=== PATIENT | female | born 1985 | race Caucasian/White ===

== ENCOUNTER 2018-01-21 19:13 | Observation (INO) | payer OTHER ==
[2018-01-21] MEDS ORDERED: ONDANSETRON 4 MG/2 ML VIAL ONE (19:29)
[2018-01-21] MEDS ORDERED: NS 1,000 ML IV ONE ×2 (19:30→21:57)
--- NOTE | 2018-01-21 19:31 | EDPHY ---
HPI/HX/ROS/PE/MDM Narrative: CHIEF COMPLAINT: HPI: This patient is a 33 year old female who is 20 weeks complaining of upper left abdominal pain. She is visiting from [place] for a baby shower. Around 15:00 this afternoon, she developed a shooting cramping pain wrapping around her lower ribs on her left side. She was on her way to the airport to fly home, but vomited four times since the onset of pain and decided to stay here in [place] for evaluation. She believes her episodes of emesis may be related to severe pain. Additionally, the patient notes she has had some urinary urgency today. Two weeks ago, she had similar pain lasting 30-40 minutes. She sought care at that time and had blood-work and UA which she reports were unremarkable. She has otherwise had a normal, easy and is receiving pre-tal care. Her last US was in November, and she is due for her 20 week ultrasound on Monday in [place]. She denies history of blood clots or kidney stones. No fever, diarrhea, chest pain, shortness of breath, or other associated symptoms. REVIEW OF SYSTEMS: Aside from elements discussed in the HPI, a comprehensive 10-point review of systems was reviewed and is negative. PMH: Denies. SOCIAL HISTORY: Employed. Parents at bedside. PHYSICAL EXAM: General:Patient is alert, in no acute distress. ENT:Eyes are normal to inspection. ENT inspection normal. Neck: Normal inspection. Full range of motion. Respiratory:No respiratory distress. Breath sounds normal bilaterally. Cardiovascular: Regular rate and rhythm. Strong peripheral pulses. Normal cap refill. Abdomen:The abdomen is nontender to palpation. There are no peritoneal signs. There are normal bowel sounds. Back: Tenderness to left flank. Normal to inspection. Skin: Normal color. No rash. Warm and dry. Extremities: Normal appearance. Full range of motion. Neuro: Oriented x3. Normal motor function. Normal sensory function. (Hans Garza) ED Course: 33 y/o female who is 20 weeks presents with left-sided upper abdominal pain. Exam reveals left flank tenderness. Patient declines antiemetic medications at this time. Plan for labs including CBC, chemistries, UA. Plan for US retroperitoneal abdomen as well as obstetric US. Plan to administer 1L IV NS for rehydration. Laboratory studies reviewed. WBC elevated at 17,000. UA positive for 3+ glucose and 2+ ketones. (Hans Garza) I took over care of this patient at 8:00 p.m.. This patient presents 20 weeks with left sided flank pain and several episodes of vomiting. Blood work significant for leukocytosis as well as a urinalysis positive for 3+ glucose and 2+ ketones. Retroperitoneal ultrasound as well as obstetrical ultrasound pending. 8:55 p.m., patient re-evaluated. She complains that her pain is coming back. She describes the pain at the mid to anterior axillary line below the costal margin on the left side. She describes it as sharp and cramping. I reviewed the results of her emergency department workup with her and her parents. OBGYN paged. 9:00 p.m., spoke with on-call OBGYN Dr. Kathy Driscoll, case discussed in detail with her. Vital signs, presentation, blood work, urinalysis and imaging all reviewed. I discussed the possibility of a pulmonary embolism being a source of her pain. Although, I feel her pain is below her costal margin far enough to make pulmonary embolism less likely. Dr. Driscoll feels as well that pulmonary embolism should be considered. Dr. Driscoll will see this patient in the emergency department on consultation shortly. I will obtain bilateral lower extremity ultrasounds. Dr. Driscoll also asked that we image the gallbladder and pancreas. This will be done and LFTs and lipase will be obtained as well. This plan was discussed with the patient and her family. Retroperitoneal and obstetrical ultrasound discussed with Dr. Vlad Ellison. No significant findings. Please see is above-noted reports for further details. 10:10 p.m., abdominal ultrasound and bilateral lower extremity Doppler ultrasounds discussed with staff radiologist Dr. Vlad Ellison. No significant findings. Please see his above-noted reports for further details. 10:15 p.m., spoke with Dr. Kathy Driscoll. She has evaluated the patient. Results of above ultrasounds discussed with Dr. Driscoll. She would like to admit the patient to her service for observation, IV hydration and IV pain medications overnight. She is concerned that this may be a pyelonephritis even though we are not seen evidence of infection in the patient's urine. She asked that we give the patient IV Rocephin in the emergency department as well as some IV hydromorphone for pain. This was done. Plan for admission to Dr. Driscoll reviewed with the patient and her family. All of their questions were answered. The patient was admitted in stable condition to labor and delivery under the care of Dr. Driscoll. (Alfie Myles) - Data Points Imaging Results: Imaging Impressions Abdomen/Pelvis Ultrasound 01/21/18 19:30 Impression: Small fluid-filled calyx in the upper pole of the right kidney, and very mild left sided pelvocaliectasis. There is no obstructing stone, perinephric fluid, or focal renal mass identified. The results were discussed with the patient and her parents, and also subsequently conveyed to Dr. Alfie Myles on Monday evening 01/21/2018. Obstetrics Ultrasound 01/21/18 19:31 Impression: There is a single viable intrauterine gestation with a normal amniotic fluid volume and a normal appearance of the placenta. Findings were discussed with Alfie Myles MD at 21:22, on 01/21/2018. Abdomen Ultrasound 01/21/18 21:06 Impression: 1. Normal sonographic appearance of the gallbladder, liver, and pancreas. 2. Small unchanged fluid-filled calyx in the upper pole of the right kidney, with no perinephric fluid. Findings were discussed with Alfie Myles MD at 22:15, on 01/21/2018. Extremity Venous Study 01/21/18 21:22 Impression: There is no sonographic evidence of deep or superficial venous thrombosis in either lower extremity. Findings were discussed with Harjeet, the ED technologist, who will convey the information to Alfie Myles MD at 22:09, on 01/21/2018. Laboratory Results: Laboratory Results 01/21/18 19:25 01/21/18 19:25 01/21/18 01/21/18 01/21/18 19:25 19:25 19:25 WBC 17.28 10^3/uL H 10^3/uL (3.80-9.50) RBC 4.15 10^6/uL L 10^6/uL (4.18-5.33) Hgb 13.4 g/dL g/dL (12.6-16.3) Hct 38.2 % % (38.0-47.0) MCV 92.0 fL fL (81.5-99.8) MCH 32.3 pg pg (27.9-34.1) MCHC 35.1 g/dL g/dL (32.4-36.7) RDW 13.3 % % (11.5-15.2) Plt Count 285 10^3/uL 10^3/uL (150-400) MPV 9.7 fL fL (8.7-11.7) Neut % (Auto) 90.8 % H % (39.3-74.2) Lymph % (Auto) 6.1 % L % (15.0-45.0) [place] % (Auto) 2.4 % L % (4.5-13.0) Eos % (Auto) 0.0 % L % (0.6-7.6) Baso % (Auto) 0.1 % L % (0.3-1.7) Nucleat RBC Rel Count 0.0 % % (0.0-0.2) Absolute Neuts (auto) 15.69 10^3/uL H 10^3/uL (1.70-6.50) Absolute Lymphs (auto) 1.05 10^3/uL 10^3/uL (1.00-3.00) Absolute Monos (auto) 0.41 10^3/uL 10^3/uL (0.30-0.80) Absolute Eos (auto) 0.00 10^3/uL L 10^3/uL (0.03-0.40) Absolute Basos (auto) 0.02 10^3/uL 10^3/uL (0.02-0.10) Absolute Nucleated RBC 0.00 10^3/uL 10^3/uL (0-0.01) Immature Gran % 0.6 % % (0.0-1.1) Immature Gran # 0.11 10^3/uL H 10^3/uL (0.00-0.10) Sodium 135 mEq/L mEq/L (135-145) Potassium 3.4 mEq/L L mEq/L (3.5-5.2) Chloride 101 mEq/L mEq/L (97-110) Carbon Dioxide 19 mEq/l L mEq/l (22-31) Anion Gap 15 mEq/L mEq/L (8-16) BUN 10 mg/dL mg/dL (7-23) Creatinine 0.8 mg/dL mg/dL (0.6-1.0) Estimated GFR > 60 Glucose 104 mg/dL H mg/dL (70-100) Calcium 8.8 mg/dL mg/dL (8.5-10.4) Total Bilirubin 0.5 mg/dL mg/dL (0.1-1.4) Conjugated Bilirubin 0.4 mg/dL mg/dL (0.0-0.5) Unconjugated Bilirubin 0.1 mg/dL mg/dL (0.0-1.1) AST 32 IU/L IU/L (14-46) ALT 52 IU/L IU/L (9-52) Alkaline Phosphatase 69 IU/L IU/L (38-126) Total Protein 6.5 g/dL g/dL (6.3-8.2) Albumin 3.8 g/dL g/dL (3.5-5.0) Lipase 130 IU/L IU/L (23-300) Urine Color Urine Appearance Urine pH Ur Specific [place] Urine Protein Urine Ketones Urine Blood Urine Nitrate Urine Bilirubin Urine Urobilinogen Ur Leukocyte Esterase Urine RBC Urine WBC Ur Epithelial Cells Urine Bacteria Urine Mucus Urine Glucose 01/21/18 19:25 WBC RBC Hgb Hct MCV MCH MCHC RDW Plt Count MPV Neut % (Auto) Lymph % (Auto) [place] % (Auto) Eos % (Auto) Baso % (Auto) Nucleat RBC Rel Count Absolute Neuts (auto) Absolute Lymphs (auto) Absolute Monos (auto) Absolute Eos (auto) Absolute Basos (auto) Absolute Nucleated RBC Immature Gran % Immature Gran # Sodium Potassium Chloride Carbon Dioxide Anion Gap BUN Creatinine Estimated GFR Glucose Calcium Total Bilirubin Conjugated Bilirubin Unconjugated Bilirubin AST ALT Alkaline Phosphatase Total Protein Albumin Lipase Urine Color YELLOW Urine Appearance HAZY Urine pH 5.0 (5.0-7.5) Ur Specific [place] 1.017 (1.002-1.030) Urine Protein NEGATIVE (NEGATIVE) Urine Ketones 2+ H (NEGATIVE) Urine Blood NEGATIVE (NEGATIVE) Urine Nitrate NEGATIVE (NEGATIVE) Urine Bilirubin NEGATIVE (NEGATIVE) Urine Urobilinogen NEGATIVE EU EU (0.2-1.0) Ur Leukocyte Esterase NEGATIVE (NEGATIVE) Urine RBC 1-3 /hpf /hpf (0-3) Urine WBC 1-3 /hpf /hpf (0-3) Ur Epithelial Cells TRACE /lpf /lpf (NONE-1+) Urine Bacteria 1+ /hpf H /hpf (NONE SEEN) Urine Mucus TRACE /lpf /lpf (NONE-1+) Urine Glucose 3+ H (NEGATIVE) Medications Given: Ceftriaxone Sodium/Dextrose (Rocephin 1 Gm (Premix)) 50 mls @ 100 mls/hr IV EDNOW ONE PRN Reason: Protocol Stop: 01/21/18 22:42 Last Admin: 01/21/18 22:19 Dose: 50 mls Discontinued Medications Hydromorphone HCl (Dilaudid) 0.5 mg IVP EDNOW ONE Stop: 01/21/18 22:15 Last Admin: 01/21/18 22:20 Dose: 0.5 mg Sodium Chloride (Ns) 1,000 mls @ 0 mls/hr IV EDNOW ONE; Wide Open PRN Reason: Protocol Stop: 01/21/18 19:31 Last Admin: 01/21/18 19:44 Dose: 1,000 mls Sodium Chloride (Ns) 1,000 mls @ 0 mls/hr IV ONCE ONE PRN Reason: Wide Open Stop: 01/21/18 21:58 Last Admin: 01/21/18 22:02 Dose: 1,000 mls General Time Seen by Provider: 01/21/18 19:23 Initial Vital Signs: Initial Vital Signs Temperature (C) 36.7 C 01/21/18 19:18 Heart Rate 100 01/21/18 19:18 Respiratory Rate 18 01/21/18 19:18 Blood Pressure 134/89 H 01/21/18 19:18 O2 Sat (%) 97 01/21/18 19:18 O2 Delivery Mode Room Air Allergies/Adverse Reactions: No Known Allergies Allergy (Unverified 01/21/18 19:18) Home Medications: Medication Instructions Recorded NK [No Known Home Meds] 01/21/18 Departure - Departure Disposition: [facility] In[facility] Acute Clinical Impression: Left upper quadrant abdominal pain of unknown etiology, Intrauterine normal Condition: Good Report Scribed for: Hans Garza Report Scribed by: Mary Baker Date of Report: 01/21/18 Time of Report: 19:31 Physician Review and Approval Statement: Portions of this note were transcribed by an ED scribe. I personally performed the history, physical exam, and medical decision making; and confirm the accuracy of the information in the transcribed note.
[2018-01-21 19:50] LABS: PLATELET COUNT 285 10^3/uL (150-400)
[2018-01-21] MEDS ORDERED: HYDROmorphONE/DILAUDID 2 MG/ML INJ IVP ONE (22:14)
[2018-01-21] MEDS ORDERED: ACETAMINOPHEN 500 MG TAB PO PRN (22:48)
--- NOTE | 2018-01-21 23:11 | GHP ---
[f rep st] PREOP HISTORY AND PHYSICAL DATE OF ADMISSION: 01/21/2018 ADMITTING DIAGNOSIS: Intrauterine at 20 weeks gestation with abdominal pain, nausea, vomit ing. HISTORY OF PRESENT ILLNESS: The patient is a 33-year-old 1, para 0, who is 20 weeks gestatio n. She was visiting [place] from [place] when she experienced an episode of left flank and mi d abdominal pain. She describes the pain as intense cramping with episodes of very sharp stabbing pa in which caused her to have significant episodes of nausea, vomiting. Unable to move, unable to get up. She was scheduled to fly out to [place] today and canceled her flight due to the pain and the nausea, vomiting. Patient presented to the emergency department for evaluation and she is continuin g to have significant pain in her left flank and left mid abdomen. She has nausea but no other episo carlene of vomiting. She has had good movement. No vaginal bleeding or leakage of fluid. No pelv ic pain or pressure. She has had some urinary hesitancy and incomplete emptying today, but no dysuri a, hematuria, or back or CVA tenderness. She said she ate well yesterday and today, had a good appet ite, felt well yesterday, and this pain is abrupt in onset. She denies fever, chills, or malaise. H as not had any illness. Has not had any upper abdominal or epigastric pain. The patient was evaluat ed in the emergency department and her labs were significant for an elevated white blood cell count o f 17.28, hemoglobin of 13.4, hematocrit 32.2, and platelets of 285. Chemistry panel shows an elevate d glucose of 104, potassium of 3.4, otherwise normal. Liver functions were normal. Lipase is normal . Her urinalysis showed 2+ ketones, 1+ bacteria, and 3+ glucose. She had an obstetrical ultrasound which revealed a viable fetus, heart rate of 140s, posterior placenta, no previa, no abruption, no he morrhage, no fibroids. Ovaries were identified. They were normal. No cysts. No abnormal blood rachel w. Amniotic fluid is appropriate. Baby was moving well. There were no gross abnormalities with the baby, although a full anatomical screen was not performed. She had an another abdominopelvic ultras ound. There was a small calyx in the upper pole of the right kidney, with very mild left caliectasis . No obstructing stone. No fluid or focal mass in the kidney. The bladder was seen and was normal. She had an upper abdominal ultrasound, which was also normal and a screening lower leg Doppler for clots, which was normal. The patient continues to have significant pain and a white blood cell count and despite the urinalysis not suggestive of infection, the most likely diagnosis is pyelonephritis and I am going to admit her for prophylactic treatment, IV fluids, and treatment for a possible kidne y stone as well as pyelo. PAST OBSTETRICAL HISTORY: This is her first . She has had an uncomplicated course . She did not have first trimester hyperemesis or other complaints. GYNECOLOGICAL HISTORY: She has no significant past gynecological history. PAST MEDICAL HISTORY: No significant medical history. PAST SURGICAL HISTORY: The only surgical history is left hand surgery. ALLERGIES: She has no known drug allergies. MEDICATIONS: Only include vitamins. SOCIAL HISTORY: She lives in [place]. She works in retail, travels a lot for work. Denies to bacco, alcohol, and drug use. She was visiting her family in [place] this weekend for a baby shower . FAMILY HISTORY: Noncontributory. PHYSICAL EXAMINATION: VITAL SIGNS: She is afebrile. Temperature is 36.7, blood pressure is 119/63, pulse is 94, respiratory rate is 16. She is 98% on room air. GENERAL: She is a well-developed whi te female, in no acute distress. LUNGS: Clear to auscultation bilaterally. HEART: Regular rate an d rhythm rate. No murmur. ABDOMEN: She is gravid, with uterus fundus at the umbilicus. The pain i s in her left flank and mid abdomen, moderate to palpation. No rebound. No guarding. The patient f eels better lying on her side. No CVA tenderness. PELVIC: Exam was deferred. ASSESSMENT/PLAN: 33-year-old 1, para 0 at 20 weeks gestation with unexplained left abdominal pain, leukocytosis. I will admit her for observation with aggressive intravenous fluid management, straining her urine, give her ceftriaxone for prophylaxis for pyelonephritis, repeat a CBC in the [facility], and continue to assess. /[id number]/MODL
[2018-01-21 23:21] VITALS: BP 121/82
[2018-01-21] MEDS: LR 1,000 ML IV SCH (23:59)
[2018-01-22] MEDS: HYDROmorphONE/DILAUDID 1 MG/ML INJ IVP PRN ×3 (01:15→10:16)
[2018-01-22] MEDS ORDERED: ONDANSETRON 4 MG/2 ML VIAL ONE (05:19)
[2018-01-22 05:26] LABS: PLATELET COUNT 250 10^3/uL (150-400)
[2018-01-22] MEDS: ONDANSETRON 4 MG/2 ML VIAL IVP PRN ×2 (05:33→10:25)
[2018-01-22] MEDS: LR 1,000 ML IV SCH (05:33)
[2018-01-22] MEDS ORDERED: HYDROCODONE/APAP 5/325 TAB PO PRN (14:01)
[2018-01-22] MEDS ORDERED: KETOROLAC 15 MG/1 ML SDV IVP ONE (14:02)
--- NOTE | 2018-01-22 23:12 | OBPROG ---
Labor Progress Note Assessment/Plan: Assessment: left abdominal pain in status reassuring Plan: discharge to home with po norco 01/22/18 22:56 Subjective/Intrapartum Course: 01/22/18 22:57 antepartum patient was seen multiple times during the day and evaluated. She stated she had good movement. she denies any vaginal bleeding, dysuria, loss of fluid or contractions. she has episodes of increased left midabdomen pain which she describes as throbbing and severe. it does not radiate anywhere. we had a long discussion about options. patient has been straining her urine. she has been afebrile. we repeated a urinalysis to see if any further signs of kidney stones. no blood in urine noted. urine culture was not back yet. patient was started on po pain meds once able to tolerate po intake. pain better controlled with norco. patient decided to go home tonight. precautions, kick counts, pain precautions and warning signs reviewed. Objective: 01/22/18 05:15 Total Bilirubin 0.5 mg/dL (0.1-1.4) 01/21/18 19:25 Conjugated Bilirubin 0.4 mg/dL (0.0-0.5) 01/21/18 19:25 Unconjugated Bilirubin 0.1 mg/dL (0.0-1.1) 01/21/18 19:25 AST 32 IU/L (14-46) 01/21/18 19:25 ALT 52 IU/L (9-52) 01/21/18 19:25 Temp Pulse Resp BP Pulse Ox 36.9 C 91 18 121/82 H 98 01/21/18 22:44 01/21/18 22:44 01/21/18 22:44 01/21/18 22:44 01/21/18 22:21 - Physical Exam General Appearance: WD/WN, alert, no apparent distress Neck: non-tender, full range of motion, supple Respiratory: chest non-tender, lungs clear, normal breath sounds Cardiac/Chest: normal peripheral pulses, regular rate, rhythm Abdomen: normal bowel sounds, other (gravid. tenderness on left ribs) Extremities: normal range of motion, non-tender, normal inspection, normal capillary refill Back: Normal inspection Skin: normal color, warm/dry Neuro/Psych: no motor/sensory deficits, alert, normal mood/affect, oriented x 3 Oxytocin Orders Assessment - Pre-Induction/Augmentation Assessment Gestational Age: 20 week(s) and 1 day(s) ICD10 Worksheet Patient Problems: Problems Problem Status Onset Intrauterine normal Acute Left upper quadrant abdominal pain of unknown etiology Acute
--- NOTE | 2018-01-23 00:26 | GDS ---
[f rep st] DISCHARGE SUMMARY ADMISSION DIAGNOSIS: Intrauterine at 20 weeks' gestation with left flank pain. HISTORY AND HOSPITAL COURSE: Patient was getting ready to fly home to [place] after her baby shower when she developed sudden left flank pain while she was at the airport. She vomited several times from the pain, and her parents brought her back home and brought her into the hospital. status was reassuring. She was not having any contractions. She had an ultrasound of her abdomen which did not reveal any obvious kidney stones or any causes of the pain. Patient continued to have episodes of pain which is in the left lateral edge of the ribs. It was somewhat reproducible. Patient was started on antibiotics for possible pyelonephritis as her white count was 17. She was given IV narcotics. In the morning, her white count had increased to 18, and her pain was coming and going. She was switched over to p.o. narcotics. status remained reassuring and appropriate for gestational age. The patient was able to rest comfortably and tolerate p.o. medications. We had a long discussion with the patient about management options as she was afebrile and the pain was coming and going. We discussed sending the patient home with precautions and instructions to follow up if she develops any fevers, or chills, or worsening of the pain. We discussed the possibility of an atypical appendicitis. However, patient has remained afebrile. The patient decided to go home with strict precautions of when to return if she developed any fevers or chills, loss of fluid or vaginal bleeding. The patient was discharged to home with a prescription for [place] 20 and instructions to call our office tomorrow to see if her urine culture results are back. Then, if they are positive, she will be treated with antibiotics. Because of the possibility of a kidney stone, a 2nd urinalysis was sent later in the day but that did not show any red blood cells. Patient is instructed to continue hydrating well and straining her urine to look for kidney stones. precautions and kick counts were reviewed with the patient. The patient was discharged to home. /[id number]/MODL MTDD
== END 2018-01-22 21:15 | disposition home or self-care (01) ==
LOC: FLD 22:12 → UNDOADMOB 22:12 → FLD 22:49
PROVIDERS: ADMIT Obstetrics & Gynecology; ATTEND Obstetrics & Gynecology
DX: O09.512 Supervision of elderly primigravida, second trimester (principal); R10.12 Left upper quadrant pain; Z3A.20 20 weeks gestation of pregnancy
CPT/HCPCS: 76705; 76770; 76805; 93970; G0378; J0696; J1170; J1885; J2405